=== PATIENT | female | born 1995 | race Caucasian/White ===

== ENCOUNTER 2020-10-19 04:05 | Day surgery (SDC) | payer OTHER ==
[2020-10-19 04:38] VITALS: BMI 36.7
[2020-10-19] MEDS ORDERED: hydrALAZINE 20 MG/ML VIAL SLOW IVP PRN (06:27)
== END 2020-10-19 06:40 | disposition home or self-care (01) ==
LOC: CSHLD/OP 04:05
PROVIDERS: ATTEND Obstetrics & Gynecology
DX: Z04.3 Encounter for examination and observation following other accident (principal); O99.213 Obesity complicating pregnancy, third trimester; E66.9 Obesity, unspecified; Z3A.29 29 weeks gestation of pregnancy; W10.8XXA Fall (on) (from) other stairs and steps, initial encounter
CPT/HCPCS: 99282

== ENCOUNTER 2020-12-13 12:05 | Outpatient (CLI) | payer OTHER ==
[2020-12-14 01:46] LABS: SARS-CoV-2 PCR by NAA Not Detected (NotDetected)
== END 2020-12-13 12:06 | disposition home or self-care (01) ==
LOC: CSHLAB 12:05
PROVIDERS: ATTEND Obstetrics & Gynecology
DX: Z20.822 Contact with and (suspected) exposure to COVID-19 (principal)
CPT/HCPCS: 87635; U0003; U0005

== ENCOUNTER 2020-12-14 10:16 | Inpatient (IN) | payer OTHER ==
[2020-12-14] MEDS ORDERED: Promethazine HCl 25 MG/ML VIAL IM PRN ×3 (12:10→16:40)
[2020-12-14] MEDS ORDERED: Bicitra 30 ML UDCUP PO PRN (12:10)
[2020-12-14] MEDS ORDERED: Ondansetron PF 4 MG/2 ML Vial IVP PRN ×3 (12:10→16:40)
[2020-12-14] MEDS ORDERED: hydrALAZINE 20 MG/ML VIAL SLOW IVP PRN ×2 (12:10→16:40)
[2020-12-14] MEDS ORDERED: Famotidine/PF 20 mg/2ml Vial SLOW IVP PRN (12:10)
[2020-12-14] MEDS ORDERED: Lactated Ringer's 1,000 ML IV SCH (12:15)
[2020-12-14] MEDS ORDERED: CEFAZOLIN 2 GM in Premix Bag 1 BAG IVPB SCH (12:15)
[2020-12-14] MEDS ORDERED: Lidocaine 1% PF 5 ML VIAL ONE (12:32)
[2020-12-14] MEDS ORDERED: Ondansetron PF 4 MG/2 ML Vial ONE (12:33)
[2020-12-14] MEDS ORDERED: Oxytocin 10 UNITS/ML VIAL ONE (12:33)
[2020-12-14 12:56] VITALS: BMI 39.9
[2020-12-14] MEDS ORDERED: Morphine PF 10 MG/10 ML VIAL ONE (13:03)
[2020-12-14 13:05] LABS: Hemoglobin 8.1 g/dL (12.0-15.5); Mean Corpuscular HGB CONC 29.1 g/dL (32.0-36.0); Mean Corpuscular Hemoglobin 22.1 pg (27.0-33.0); Mean Platelet Volume 9.6 fl (7.4-10.4); Platelet Count 311 10x3/uL (150-450); RBC Distribution Width 18.6 % (11.5-14.5); Red Blood Cell (RBC) Count 3.66 10x6/uL (3.90-5.03)
[2020-12-14 13:32] LABS: Hep B Surf Ag Non-Reactive S/CO (NonReactive); Syphilis Antibody Nonreactive (Nonreactive); Syphilis Antibody Index 0.09 S/CO (<1.00 Non-Reactive)
[2020-12-14 13:48] LABS: HBSAg Index 0.18 S/CO (0-0.99)
[2020-12-14] MEDS ORDERED: Promethazine HCl 25 MG SUPP PR PRN (14:30)
[2020-12-14] MEDS ORDERED: Eucerin (Mineral Oil/Petrolatum,White) 30 gm Jar TOP PRN (14:30)
[2020-12-14] MEDS ORDERED: Ketorolac Tromethamine 30 MG/ML VIAL IVP SCH ×2 (14:30→18:00)
[2020-12-14] MEDS ORDERED: L&D-Morphine 4 MG/ML VIAL SLOW IVP PRN (14:30)
[2020-12-14] MEDS ORDERED: HYDROmorphone 2 MG/ML VIAL SLOW IVP PRN (14:30)
[2020-12-14] MEDS ORDERED: Communication Order-Pharmacy FS SCH (14:30)
[2020-12-14] MEDS ORDERED: Ondansetron HCl/PF 4 MG/2 ML Vial IVP PRN (14:30)
[2020-12-14] MEDS ORDERED: Naloxone HCl 0.4 mg/ml Vial IVP PRN ×2 (14:30)
[2020-12-14] MEDS ORDERED: diphenhydrAMINE 50 MG/ML VIAL IVP PRN (14:30)
[2020-12-14] MEDS ORDERED: Naloxone HCl 0.4 mg/ml Vial IV PRN (14:30)
[2020-12-14] MEDS ORDERED: Meperidine HCl/PF 25 MG/ML VIAL SLOW IVP PRN (14:30)
[2020-12-14] MEDS ORDERED: NS w/ Oxytocin 30 units 500 ML ONE (16:38)
[2020-12-14] MEDS ORDERED: Methylergonovine 0.2 MG/ML VIAL IM PRN (16:40)
[2020-12-14] MEDS ORDERED: Bisacodyl 10 MG SUPP PR PRN (16:40)
[2020-12-14] MEDS ORDERED: Adacel (T-DAP) 0.5 ML SYRINGE IM ONE (16:40)
[2020-12-14] MEDS ORDERED: Lanolin Ointment 7 GM TUBE TOP PRN (16:40)
[2020-12-14] MEDS ORDERED: Varicella virus, LIVE 0.5 ML VIAL SC ONE (16:40)
[2020-12-14] MEDS ORDERED: Misoprostol 200 MCG TAB PR PRN (16:40)
[2020-12-14] MEDS ORDERED: Measles/Mumps/Rubella 10 MCG/0.5 ML VIAL SC ONE (16:40)
[2020-12-14] MEDS: Ketorolac Tromethamine 30 MG/ML VIAL IVP PRN (17:00)
[2020-12-14] MEDS ORDERED: NS w/ Oxytocin 30 units 500 ML IVPB SCH (17:15)
[2020-12-14] MEDS: Docusate Calcium (SURFAK) 240 MG CAP PO SCH (21:00)
[2020-12-15] MEDS: Ketorolac Tromethamine 30 MG/ML VIAL IVP PRN ×2 (02:11→08:05)
[2020-12-15] MEDS ORDERED: Zolpidem Tartrate 5 MG TAB PO PRN (02:30)
[2020-12-15 06:03] LABS: Hemoglobin 6.4 g/dL (12.0-15.5); Mean Corpuscular HGB CONC 29.1 g/dL (32.0-36.0); Mean Corpuscular Hemoglobin 21.8 pg (27.0-33.0); Mean Corpuscular Volume 74.8 fl (81.6-98.3); Mean Platelet Volume 9.4 fl (7.4-10.4); Platelet Count 204 10x3/uL (150-450); RBC Distribution Width 18.6 % (11.5-14.5); Red Blood Cell (RBC) Count 2.94 10x6/uL (3.90-5.03)
[2020-12-15] MEDS: Prenatal Vitamin 1 TAB PO SCH (08:07)
[2020-12-15] MEDS: Docusate Calcium (SURFAK) 240 MG CAP PO SCH ×2 (08:08→19:42)
[2020-12-15] MEDS ORDERED: Lactated Ringer's 1,000 ML IV SCH (09:00)
[2020-12-15] MEDS ORDERED: Furosemide 20 MG/2 ML VIAL SLOW IVP SCH (09:00)
[2020-12-15 12:30] LABS: Mean Corpuscular HGB CONC 29.2 g/dL (32.0-36.0)
[2020-12-15 12:39] LABS: #Eosinphils 0.2 10x3/uL (0.0-0.5); #Neutrophils 9.1 10x3/uL (1.5-8.4); %Basophils 0.2 % (0.0-2.0); %Eosinophils 1.7 % (0.0-6.0); %Lymphocytes 14.7 % (18.0-47.0); %Monocytes 7.8 % (0.0-10.0); %Neutrophils 74.6 % (40.0-75.0); Hemoglobin 6.8 g/dL (12.0-15.5); Mean Corpuscular Hemoglobin 21.9 pg (27.0-33.0); Mean Corpuscular Volume 75.2 fl (81.6-98.3); Platelet Count 209 10x3/uL (150-450); White Blood Cell (WBC) Count 12.3 10x3/uL (3.5-10.5)
[2020-12-15] MEDS: Simethicone Chewable 80 MG TAB PO PRN ×2 (13:42→19:42)
[2020-12-15] MEDS: HYDROcodone/Acetaminophen 5/325 mg Tablet PO PRN ×2 (13:43→19:41)
[2020-12-15] MEDS: Ibuprofen 800 MG TAB PO SCH (19:42)
[2020-12-16] MEDS: HYDROcodone/Acetaminophen 5/325 mg Tablet PO PRN ×3 (00:41→15:28)
[2020-12-16] MEDS: Ibuprofen 800 MG TAB PO SCH ×3 (04:30→21:15)
[2020-12-16 05:30] LABS: #Eosinphils 0.3 10x3/uL (0.0-0.5); #Monocytes 1.2 10x3/uL (0.0-1.1); #Neutrophils 10.3 10x3/uL (1.5-8.4); %Basophils 0.2 % (0.0-2.0); %Eosinophils 2.1 % (0.0-6.0); %Lymphocytes 14.2 % (18.0-47.0); %Monocytes 8.6 % (0.0-10.0); %Neutrophils 73.8 % (40.0-75.0); Hemoglobin 6.6 g/dL (12.0-15.5); Mean Corpuscular HGB CONC 28.3 g/dL (32.0-36.0); Mean Corpuscular Hemoglobin 21.8 pg (27.0-33.0); Mean Corpuscular Volume 76.9 fl (81.6-98.3); Platelet Count 265 10x3/uL (150-450); Red Blood Cell (RBC) Count 3.03 10x6/uL (3.90-5.03)
[2020-12-16 05:56] LABS: Platelet Morphology Comment Appears Adequate
[2020-12-16 05:57] LABS: Anisocytosis SLIGHT = 6-15 cells (100X) (0-5/hpf); Basophilic Stippling SLIGHT = 1-2 cells (100X) (None Seen); Hypochromia SLIGHT = 6-15 cells (100X) (0-5/hpf); Microcytosis SLIGHT = 6-15 cells (100X) (0-5/hpf); Polychromasia SLIGHT = 2-3 cells (100X) (0-2/hpf); Stomatocytes SLIGHT = 2-5 cells (100X) (0-1/hpf); Target Cells SLIGHT = 2-5 cells (100X) (0-1/hpf)
[2020-12-16] MEDS: Docusate Calcium (SURFAK) 240 MG CAP PO SCH ×2 (09:47→21:14)
[2020-12-16] MEDS: Prenatal Vitamin 1 TAB PO SCH (09:47)
[2020-12-17] MEDS: Ibuprofen 800 MG TAB PO SCH ×2 (05:30→14:02)
[2020-12-17] MEDS: HYDROcodone/Acetaminophen 5/325 mg Tablet PO PRN (05:33)
[2020-12-17] MEDS: Docusate Calcium (SURFAK) 240 MG CAP PO SCH (08:46)
[2020-12-17] MEDS: Prenatal Vitamin 1 TAB PO SCH (08:46)
[2020-12-17 08:57] VITALS: BP 123/68; TEMP 98.2
== END 2020-12-17 17:13 | disposition home or self-care (01) | DRG 788 ==
LOC: CSHLD 10:16 → CSHPP 17:30
PROVIDERS: ADMIT Obstetrics & Gynecology; ATTEND Obstetrics & Gynecology
PROC: 10D00Z1 Extraction of Products of Conception, Low, Open Approach (ICD-10-PCS; principal; 2020-12-14)
DX: O34.211 Maternal care for low transverse scar from previous cesarean delivery (principal); Z3A.37 37 weeks gestation of pregnancy; Z37.0 Single live birth; Z20.822 Contact with and (suspected) exposure to COVID-19; O13.4 Gestational [pregnancy-induced] hypertension without significant proteinuria, complicating childbirth; O99.02 Anemia complicating childbirth; D64.9 Anemia, unspecified
CPT/HCPCS: 36415; 51702; 85025; 85027; 86780; 86850; 86900; 86901; 87340; 87635; 90715; J0690; J1885; J1940; J2274; J2405; J2590; U0003; U0005